=== PATIENT | female | born 1965 | race Caucasian/White ===

== ENCOUNTER 2017-06-16 12:36 | Emergency (ER) | payer OTHER ==
[~2017-06-16] VITALS: Ht 162.6 cm; Wt 78.9 kg
[2017-06-16 12:42] VITALS: Ht 162.6 cm; Wt 78.9 kg
[2017-06-16 15:12] LABS: BASOPHIL % 0.6 % (0-2); PLATELET COUNT 245 x10^3mcL (130-400); RED CELL DISTRIBUTION WIDTH 13.4 % (11.5-14.5)
[2017-06-16 15:23] LABS: CALCIUM 9.6 mg/dL (8.5-10.1); CARBON DIOXIDE 24.2 mmol/L (21-32); CHLORIDE SERUM 105 mmol/L (98-107); CREATININE SERUM 0.7 mg/dL (0.6-1.0); GFR1 > 60 mL/min; GLUCOSE SERUM 94 mg/dL (74-106); POTASSIUM SERUM 3.8 mmol/L (3.5-5.1); SODIUM SERUM 141 mmol/L (136-145)
[2017-06-16 15:48] LABS: ALKALINE PHOSPHATASE 88 U/L (46-116); ALT/SGPT 41 U/L (14-59); AST/SGOT 42 U/L (15-37); BILIRUBIN TOTAL 0.35 mg/dL (0.20-1.00); TOTAL PROTEIN, SERUM 8.2 g/dL (6.4-8.2)
[2017-06-16 17:23] VITALS: BP 118/76
== END 2017-06-16 17:23 | disposition home or self-care (01) ==
LOC: ED 12:36
PROVIDERS: Emergency Medicine
DX: J20.8 Acute bronchitis due to other specified organisms (principal); I50.9 Heart failure, unspecified; Z88.5 Allergy status to narcotic agent; Z88.6 Allergy status to analgesic agent
CPT/HCPCS: 36415; 83880

== ENCOUNTER 2017-06-23 13:59 | Emergency (ER) | payer OTHER ==
[~2017-06-23] VITALS: Ht 162.6 cm; Wt 78.0 kg
[2017-06-23 14:07] VITALS: Ht 162.6 cm; Wt 78.0 kg
[2017-06-23 17:38] VITALS: BP 93/41
== END 2017-06-23 17:00 | disposition home or self-care (01) ==
LOC: ED 13:59
DX: J98.01 Acute bronchospasm (principal); Z79.51 Long term (current) use of inhaled steroids
CPT/HCPCS: J1100; J7613; J7644